=== PATIENT | female | born 1950 | race Caucasian/White ===

== ENCOUNTER 2024-08-05 13:21 | Observation (INO) | payer MEDICARE, OTHER ==
[~2024-08-05] VITALS: Ht 172.7 cm; Wt 58.1 kg
[2024-08-05] MEDS ORDERED: PREDNISONE2.5 MG PO (13:50)
[2024-08-05] MEDS ORDERED: PREDNISONE5 MG PO (13:50)
[2024-08-05] MEDS ORDERED: FOLIC ACID0.4 MG PO (13:50)
[2024-08-05] MEDS ORDERED: ARAVA20 MG PO (13:51)
[2024-08-05] MEDS ORDERED: NEURONTIN100 MG PO (13:51)
[2024-08-05] MEDS ORDERED: ATENOLOL-CHLOR1 EAC1 (13:51)
[2024-08-05] MEDS ORDERED: SIMVASTATIN20 MG PO (13:51)
[2024-08-05] MEDS ORDERED: SODIUM CHLORIDE 0.9% 1000ML 1,000 ML IV STA (14:08)
[2024-08-05] MEDS: SODIUM CHLORIDE 0.9% 1000ML 1,000 ML IV STA (14:49)
[2024-08-05] MEDS: FAMOTIDINE 20 MG/2 ML VIAL IV STA (14:49)
[2024-08-05] MEDS: ONDANSETRON HCL INJ 2MG/ML 2ML 2 MG/ML VIAL IV STA (14:49)
[2024-08-05] MEDS ORDERED: SODIUM CHLORIDE FLUSH 10 ML SYR INJ PRN (17:00)
[2024-08-05] MEDS: ASPIRIN 81 MG CHEW TAB PO ONE (17:41)
[2024-08-05] MEDS: SODIUM CHLORIDE 0.9% 1000ML 1,000 ML IV SCH (17:42)
[2024-08-05 17:50] VITALS: PULSE 73; RESP 18; TEMP 97.3
[2024-08-05 19:20] VITALS: BP 153/69; PULSE 77; RESP 17; TEMP 98.3; O2SAT 92
[2024-08-05 20:00] VITALS: BP 153/69; PULSE 77; RESP 17; TEMP 98.3; O2SAT 94
[2024-08-06] VITALS (10 sets, daily range): BP systolic 127–166; BP diastolic 60–76; PULSE 63–87; RESP 16–20; TEMP 97.8–99; O2SAT 93–96
[2024-08-06 02:42] LABS: TROPONIN I 0.032 ng/mL (0-0.300)
[2024-08-06] MEDS: ONDANSETRON HCL INJ 2MG/ML 2ML 2 MG/ML VIAL IV PRN (04:32)
[2024-08-06 05:41] LABS: BASOPHILS % 0.7 % (0.0-1.0); EOSINOPHILS # (AUTO) 0.2 (0.0-0.4); EOSINOPHILS % 2.5 % (0.0-6.0); HEMATOCRIT 45.4 % (34.2-44.1); HEMOGLOBIN 13.7 g/dL (12.0-16.0); LYMPHOCYTES # (AUTO) 1.3 (1.0-3.2); LYMPHOCYTES % 20.9 % (18.0-39.1); MEAN CORPUSCULAR HEMOGLOBIN 28.8 pg (28-32); MEAN CORPUSCULAR HGB CONC 30.2 g/dL (31-35); MEAN CORPUSCULAR VOLUME 95.4 fL (81-99); MONOCYTES # (AUTO) 0.9 (0.2-0.8); MONOCYTES % 14.2 % (4.4-11.3); NEUTROPHILS # (AUTO) 3.8 (2.1-6.9); NEUTROPHILS % 61.2 % (38.7-80.0); PLATELET COUNT 190 x10e3/uL (140-360); RED BLOOD COUNT 4.76 x10e6/uL (3.6-5.1); RED CELL DISTRIBUTION WIDTH 14.7 % (11.7-14.4); WHITE BLOOD COUNT 6.12 x10e3/uL (4.8-10.8)
[2024-08-06 06:09] LABS: ALBUMIN/GLOBULIN RATIO 0.8 (0.8-2.0); ANION GAP 16.8 mmol/L (8-16); BILIRUBIN,TOTAL 0.5 mg/dL (0.2-1.2); CALCIUM 8.4 mg/dL (8.4-10.2); CREATININE, SERUM 0.8 mg/dL (0.57-1.11); MAGNESIUM 1.5 MG/DL (1.3-2.1); PHOSPHORUS 2.2 MG/DL (2.3-4.7); TOTAL PROTEIN 6.6 g/dL (6.5-8.1)
[2024-08-06 06:18] LABS: POTASSIUM 2.8 mmol/L (3.5-5.1)
[2024-08-06] MEDS: POTASSIUM CHLORIDE 20 MEQ TAB CR PO ONE ×2 (07:39→10:29)
[2024-08-06] MEDS ORDERED: POTASSIUM CHLORIDE 20 MEQ TAB CR PO ONE (09:00)
[2024-08-06] MEDS ORDERED: POTASSIUM CHLORIDE 10MEQ EA PO ONE (10:30)
[2024-08-06 10:32] LABS: TROPONIN I 0.037 ng/mL (0-0.300)
[2024-08-06] MEDS ORDERED: TRELEGY ELLIPT1 EACH INH (11:15)
[2024-08-06] MEDS ORDERED: FAMOTIDINE10 MG PO (11:16)
[2024-08-06] MEDS ORDERED: ALBUTEROL/IPRATROPIUM 3 ML NEB NEB PRN (11:45)
[2024-08-06] MEDS ORDERED: IOPAMIDOL 370 MG/ML 100 ML INFUS..BTL INJ ONE (12:59)
[2024-08-06] MEDS: ATENOLOL 50 MG TAB PO SCH (14:49)
[2024-08-06] MEDS: GABAPENTIN 100 MG CAP PO SCH (16:40)
[2024-08-06] MEDS: ENOXAPARIN SOD INJ 40 MG/0.4 ML SYR SC SCH (16:40)
[2024-08-06] MEDS: SIMVASTATIN 20 MG TAB PO SCH (20:35)
[2024-08-07] VITALS: BP 148/62; PULSE 70; RESP 18; TEMP 97.3; O2SAT 90
[2024-08-07 04:00] VITALS: BP 119/59; PULSE 69; RESP 20; TEMP 98.1; O2SAT 99
[2024-08-07 06:03] LABS: ANION GAP 13.2 mmol/L (8-16); CREATININE, SERUM 0.75 mg/dL (0.57-1.11)
[2024-08-07 06:06] LABS: POTASSIUM 3.2 mmol/L (3.5-5.1)
[2024-08-07 06:35] LABS: TROPONIN I 0.023 ng/mL (0-0.300)
[2024-08-07 07:32] VITALS: PULSE 82; RESP 18; O2SAT 96
[2024-08-07] MEDS: Fluticasone/Umeclidin/Vilanter (Trelegy Ellipta 100-62.5-25) INHALER INH SCH (07:33)
[2024-08-07 08:35] VITALS: BP 151/69; PULSE 69; RESP 20; O2SAT 95
[2024-08-07] MEDS: FOLIC ACID 1 MG TAB PO SCH (08:39)
[2024-08-07] MEDS: PREDNISONE 5 MG TAB PO SCH (08:40)
[2024-08-07] MEDS: LEFLUNOMIDE 10 MG PO SCH (08:45)
[2024-08-07] MEDS ORDERED: NON-FORMULARY MEDICATION (Folic Acid* 0.4 MG) PO SCH (09:00)
[2024-08-07] MEDS ORDERED: PREDNISONE 5 MG TAB PO SCH (09:00)
[2024-08-07] MEDS ORDERED: POTASSIUM CHLORIDE 10MEQ EA PO ONE (11:30)
[2024-08-07] MEDS ORDERED: ONDANSETRON ODT4 MG PO (11:53)
[2024-08-07 12:40] VITALS: BP 140/68; PULSE 62; RESP 20; TEMP 98.1; O2SAT 95
[2024-08-09] MEDS ORDERED: DOXYCYCLINE HY100 MG PO (14:26)
== END 2024-08-07 14:16 | disposition home or self-care (01) ==
LOC: FSED 13:27 → ERHOLD 17:16 → MED/SURG2 19:20
PROVIDERS: ADMIT Internal Medicine; ATTEND Internal Medicine
DX: U07.1 COVID-19 (principal); R19.7 Diarrhea, unspecified; N17.9 Acute kidney failure, unspecified; E87.6 Hypokalemia; I10 Essential (primary) hypertension; J44.9 Chronic obstructive pulmonary disease, unspecified; E78.00 Pure hypercholesterolemia, unspecified; R91.8 Other nonspecific abnormal finding of lung field; M31.30 Wegener's granulomatosis without renal involvement; Z79.52 Long term (current) use of systemic steroids
CPT/HCPCS: 36415 ×2; 71046; 71260; 80048; 80053 ×2; 81003; 82550 ×2; 82948; 83735; 84100; 84484 ×2; 85025 ×2; 93005; 94799 ×2; 96374; 96375; 99284; G0378 ×3; J1650; J2405 ×3; J7030 ×3; J7512; Q9967